=== PATIENT | female | born 1975 | race Caucasian/White ===

== ENCOUNTER → 2020-09-25 | Outpatient (CLI) | payer MEDICARE, OTHER ==
[~2020-09-25] MED LIST: COLACE100 MG PO; KEFLEX500 MG PO; MOBIC15 MG PO; OMNICEF 300 MG300 MG PO; PREDNISONE 10 M10 MG PO
[2020-09-28 20:10] LABS: ANTIMYELOPEROXIDASE (MPO) ABS <9.0 U/mL (0.0-9.0); ANTIPROTEINASE 3 (PR-3) ABS <3.5 U/mL (0.0-3.5); ATYPICAL PANCA <1:20 titer (Neg:<1:20); CYTOPLASMIC (C-ANCA) <1:20 titer (Neg:<1:20); PERINUCLEAR (P-ANCA) <1:20 titer (Neg:<1:20)
== END ==
LOC: RAD 09:37
PROVIDERS: Internal Medicine
DX: M79.641 Pain in right hand (principal); M79.642 Pain in left hand; B18.2 Chronic viral hepatitis C; D64.9 Anemia, unspecified; M25.50 Pain in unspecified joint; M19.042 Primary osteoarthritis, left hand; M19.041 Primary osteoarthritis, right hand
CPT/HCPCS: 36415; 73130; 82728; 83520; 85652; 86140; 86256

== ENCOUNTER → 2021-01-21 | Outpatient (CLI) | payer OTHER | LOC: LAB 21:34 | DX: Z53.9 Procedure and treatment not carried out, unspecified reason (principal) | CPT/HCPCS: 36415 ==

== ENCOUNTER 2021-01-22 15:46 | Emergency (ER) | payer MEDICARE, OTHER | END 2021-01-22 15:50 | disposition E | LOC: ER1 15:46 | DX: I46.9 Cardiac arrest, cause unspecified (principal) | CPT/HCPCS: 92950; 99285; J0171 ==